=== PATIENT | male | born 1995 | race Caucasian/White ===

== ENCOUNTER 2025-09-29 19:32 | Emergency (ER) | payer MEDICAID ==
[~2025-09-29] VITALS: Ht 175.3 cm; Wt 72.6 kg
[2025-09-29 20:50] VITALS: BP 131/77; TEMP 98.2; O2SAT 98
== END 2025-09-29 20:51 | disposition home or self-care (01) ==
LOC: ER 19:35
DX: R07.89 Other chest pain (principal)
CPT/HCPCS: 71045-TC